=== PATIENT | male | born 1960 | race Hispanic/Latino ===

== ENCOUNTER → 2023-05-10 | Outpatient (CLI) | payer OTHER ==
[~2023-05-10] VITALS: Ht 180.3 cm; Wt 89.8 kg
[~2023-05-10] MED LIST: AMLO-257 PO; ASPI-888 PO; BETA1TAB20 PO; CARV3.12 PO; DOCU100T PO; DULA1.5P SQ; DULA3PEN SQ; ESCI20TA38 PO; EVOL140P3 SQ; FURO40TA5 PO; INSU100V37 SQ; LOSA50TA64 PO; METO-408 PO; MVIT PO; SPIR25TA6 PO
[2023-05-10 08:09] VITALS: BP 146/85; PULSE 82; RESP 12
[2023-05-10 08:11] LABS: BASOPHILS # (AUTO) 0.03 K/uL (0.00-0.20); BASOPHILS % (AUTO) 0.4 % (0.0-5.0); EOSINOPHILS # (AUTO) 0.23 K/uL (0.00-0.70); EOSINOPHILS % (AUTO) 3.1 % (0.0-8.0); HEMATOCRIT 39.5 % (42-54); IMMATURE GRANULOCYTE ABSOLUTE 0.03 K/uL (0-1); LYMPHOCYTES # (AUTO) 2.8 K/uL (1.0-4.8); LYMPHOCYTES % (AUTO) 38.3 % (21.0-51.0); MEAN CORPUSCULAR HEMOGLOBIN 32.1 pg (27.0-33.0); MEAN CORPUSCULAR HGB CONC 34.2 g/dL (32.0-36.0); MONOCYTES # (AUTO) 0.6 K/uL (0.1-1.0); MONOCYTES % (AUTO) 8.3 % (3.0-13.0); NEUTROPHILS # (AUTO) 3.7 K/uL (1.8-7.7); NEUTROPHILS % (AUTO) 49.5 % (40.0-77.0); PLATELET COUNT (AUTO) 179 K/uL (130-400); RED CELL DISTRIBUTION WIDTH 12.2 % (11.0-15.5); WHITE BLOOD COUNT (AUTO) 7.4 K/uL (4.8-10.8)
[2023-05-10 08:19] LABS: CREATININE 0.9 mg/dL (0.5-1.5); POTASSIUM 4.8 mmol/L (3.5-5.1)
[2023-05-10 08:22] LABS: INR 0.94 (0.85-1.15)
[2023-05-10 08:23] LABS: PARTIAL THROMBOPLASTIN TIME 26.5 SEC (26.3-35.5)
== END | disposition home or self-care (01) ==
LOC: EDSTATUS 08:00 → DAH 10:00
PROVIDERS: ATTEND Internal Medicine Cardiovascular Disease
DX: Z01.818 Encounter for other preprocedural examination (principal); I25.5 Ischemic cardiomyopathy; I44.7 Left bundle-branch block, unspecified; I49.3 Ventricular premature depolarization; N18.6 End stage renal disease
CPT/HCPCS: 36415; 80048; 85025; 85610; 85730; 93005

== ENCOUNTER 2023-05-26 06:31 | Day surgery (SDC) | payer OTHER ==
[2023-05-24 13:29] LABS: HEMATOCRIT 37.4 % (42-54); MEAN CORPUSCULAR HEMOGLOBIN 32.6 pg (27.0-33.0); MEAN CORPUSCULAR HGB CONC 34.5 g/dL (32.0-36.0); MEAN CORPUSCULAR VOLUME 94.4 fL (79-99); PLATELET COUNT (AUTO) 168 K/uL (130-400); RED BLOOD CELL COUNT(AUTO) 3.96 MIL/uL (4.50-6.20); WHITE BLOOD COUNT (AUTO) 7.5 K/uL (4.8-10.8)
[2023-05-24 13:45] LABS: INR 0.94 (0.85-1.15)
[2023-05-24 13:46] LABS: PARTIAL THROMBOPLASTIN TIME 26.7 SEC (26.3-35.5)
[2023-05-24 14:21] LABS: CREATININE 0.8 mg/dL (0.5-1.5); POTASSIUM 4.5 mmol/L (3.5-5.1)
[2023-05-24 14:22] VITALS: BP 115/64; PULSE 77; RESP 19
[2023-05-24 14:31] LABS: EOSINOPHILS % (MANUAL) 1 % (1-6); LYMPHOCYTES % (MANUAL) 42 % (22-44); MAN.DIFF COMMENT-IMPRESSION MANUAL DIFFERENTIAL; MONOCYTES % (MANUAL) 8 % (2-9); PLATELET MORPHOLOGY COMMENT ADEQUATE; SEGMENTED NEUTROPHILS % 49 % (40-70); TOTAL CELLS COUNTED 100
[~2023-05-26] VITALS: Ht 175.3 cm; Wt 89.7 kg
[2023-05-26] VITALS (9 sets, daily range): BP systolic 112–154; BP diastolic 64–95; PULSE 70–87; RESP 12–16
[~2023-05-26 06:31] MED LIST changes: -AMLO-257 PO; -DULA1.5P SQ; -ESCI20TA38 PO; -LOSA50TA64 PO; -METO-408 PO; -MVIT PO
[2023-05-26] MEDS ORDERED: 0.9%NACL 1000ML 1,000 ML IV ONE (07:43)
[2023-05-26] MEDS ORDERED: LIDOCAINE HCL 1% MDV 50ML VIAL ONE (08:53)
[2023-05-26] MEDS ORDERED: IOHEXOL-350 50ML VIAL IV ONE (08:54)
[2023-05-26] MEDS ORDERED: MIDAZOLAM HCL 1 MG/ML 2ML VIAL ONE ×2 (08:54→09:41)
[2023-05-26] MEDS ORDERED: MEPERIDINE-PF 25 MG/ML SYG ONE ×2 (08:54→09:41)
[2023-05-26] MEDS ORDERED: BUPIVACAINE/PF 0.25% 30ML VIAL IJ ONE (08:55)
[2023-05-26] MEDS ORDERED: CEFAZOLIN SODIUM 1 GM VIAL ONE (09:25)
[2023-05-26] MEDS ORDERED: DiphenhydrAMINE HCL 50 MG/ML VIAL ONE (09:49)
[2023-05-26] MEDS ORDERED: TRAM50TA4 PO (10:51)
[2023-05-26] MEDS ORDERED: ACETAMINOPHEN 500 MG TABLET PO PRN (11:00)
[2023-05-26] MEDS ORDERED: ACETAMINOPHEN WITH CODEINE 1 TAB TAB PO PRN (11:00)
== END 2023-05-26 13:59 | disposition home or self-care (01) ==
LOC: DAH 06:31
PROVIDERS: ATTEND Internal Medicine Cardiovascular Disease
DX: I25.5 Ischemic cardiomyopathy (principal); I10 Essential (primary) hypertension; E11.9 Type 2 diabetes mellitus without complications; E78.5 Hyperlipidemia, unspecified; I25.2 Old myocardial infarction; I50.22 Chronic systolic (congestive) heart failure; Z79.4 Long term (current) use of insulin; Z83.3 Family history of diabetes mellitus; Z81.8 Family history of other mental and behavioral disorders; Z84.89 Family history of other specified conditions; Z79.82 Long term (current) use of aspirin; Z87.891 Personal history of nicotine dependence; Z98.890 Other specified postprocedural states
CPT/HCPCS: 80048; 85025; 85610; 85730; 36415; 93005; 33249; 82948; 71045; C1722; C1895; J1200; J0690; J7030; J0665; J2250 ×2; J2175 ×2; J3490; Q9967; A4215; A4222; A4221; A4663; A4216; A4606; A4223 ×3; 99156; 99157